=== PATIENT | female | born 1980 | race Caucasian/White ===

== ENCOUNTER 2017-12-14 15:35 | Emergency (ER) | payer SELFPAY ==
[2017-12-14] MEDS ORDERED: ONDANSETRON 4 MG/2 ML VIAL IVP STA (16:18)
[2017-12-14] MEDS ORDERED: MORPHINE 2 MG/ML CARPUJECT IVP STA (16:18)
[2017-12-14] MEDS ORDERED: SODIUM CHLORIDE 0.9% 1,000 ML IV ONE (16:18)
[2017-12-14 16:24] LABS: ALBUMIN 3.8 g/dL (3.2-5.5); ALBUMIN/GLOBULIN RATIO 1.1 (1.0-2.2); BILIRUBIN,TOTAL 0.3 mg/dL (0.2-1.0); CREATININE 0.8 mg/dL (0.4-1.0); TOTAL PROTEIN 7.3 g/dL (6.7-8.2)
[2017-12-14 16:29] LABS: BASOPHILS % (AUTO) 0.2 %; EOSINOPHILS # (AUTO) 0.1 10^3/uL (0.0-0.7); EOSINOPHILS % (AUTO) 0.8 %; LYMPHOCYTES # (AUTO) 1.9 10^3/uL (1.5-3.5); MEAN CORPUSCULAR HEMOGLOBIN 27.6 pg (27.0-31.0); MEAN CORPUSCULAR HGB CONC 34.5 g/dL (32.0-36.0); MEAN PLATELET VOLUME 7.4 fL (7.9-10.8); MONOCYTES # (AUTO) 0.6 10^3/uL (0.0-1.0); NEUTROPHILS # (AUTO) 5.4 10^3/uL (1.5-6.6); PLT - PLATELET COUNT 374 10^3/uL (130-450); RED BLOOD COUNT 3.99 10^6/uL (4.20-5.40); RED CELL DISTRIBUTION WIDTH 17.9 % (12.0-15.0)
[2017-12-14 16:30] LABS: BILIRUBIN,URINE NEGATIVE (NEGATIVE); GLUCOSE, URINE (UA) >=1000 mg/dL (NEGATIVE); KETONES,URINE (UA) NEGATIVE (NEGATIVE); LEUKOCYTE ESTERASE, URINE NEGATIVE (NEGATIVE); NITRITE,URINE NEGATIVE (NEGATIVE); OCCULT BLOOD,URINE LARGE (NEGATIVE); PROTEIN,URINE NEGATIVE (NEGATIVE); UROBILINOGEN,URINE 0.2 (NORMAL) E.U./dL (NORMAL)
--- NOTE | 2017-12-14 16:30 | ED Physician Documentation ---
PD HPI ABD PAIN - Stated complaint Stated Complaint: ABD PX/VOMITING - Chief complaint Chief Complaint: Abd Pain - History obtained from History obtained from: Patient - History of Present Illness Timing - onset: Today Timing - duration: Days (1) Timing - details: Gradual onset Pain level max: 8 Pain level now: 8 Quality: Aching, Sharp, Pain Location: RLQ Radiation: Other (non-radiating) Improved by: Other (nothing) Worsened by: Other (movement, palpation) Associated symptoms: Nausea. No: Fever, Vomiting, Hematemesis, Diarrhea, Constipation, Melena, Hematochezia, Dysuria - Additional information Additional information: Patient has a history of ovarian cyst and is usually on control, but stopped her control 2 months ago as they are trying to have another child. She states her LMP was 2 weeks ago. Has had to have a cyst drained on the right ovary in the past. She is unsure if she has had her appendix removed or not. Review of Systems Ten Systems: 10 systems reviewed and negative Constitutional: denies: Fever, Chills Nose: denies: Rhinorrhea / runny nose, Congestion Respiratory: denies: Cough GI: reports: Nausea. denies: Vomiting, Diarrhea : denies: Dysuria, Frequency, Hesitancy, Discharge Skin: denies: Rash Musculoskeletal: denies: Neck pain, Back pain Neurologic: denies: Headache PD PAST MEDICAL HISTORY - Past Medical History Past Medical History: Yes Other Past Medical History: ovarian cysts - Past Surgical History Past Surgical History: Yes - Allergies Allergies/Adverse Reactions: Allergies Allergy/AdvReac Type Severity Reaction Status Date / Time metoclopramide [From Reglan] Allergy Anxiety Verified 12/14/17 15:44 NSAIDS (Non-Steroidal Allergy Anaphylaxis Verified 12/14/17 15:44 Anti-Inflamma - Social History Does the pt smoke?: No Smoking Status: Never smoker Does the pt drink ETOH?: No Does the pt have substance abuse?: No - Immunizations Immunizations are current?: Yes PD ED PE NORMAL - Vitals Vital signs reviewed: Yes - General General: Alert and oriented X 3, No acute distress - HEENT HEENT: Moist mucous membranes - Neck Neck: Supple, no meningeal sign - Cardiac Cardiac: RRR - Respiratory Respiratory: No respiratory distress, Clear bilaterally - Abdomen Abdomen: Soft, Non distended, Other (Tender palpation right lower quadrant near McBurney's point. Positive guarding, no rebound.) - Back Back: No CVA TTP, No spinal TTP - Derm Derm: Warm and dry - Extremities Extremities: No edema - Neuro Neuro: Alert and oriented X 3 Results - Vitals Vitals: Vital Signs - 24 hr 12/14/17 15:37 Temperature 36.5 C Heart Rate 90 Respiratory 18 Rate Blood Pressure 146/104 H O2 Saturation 97 Oxygen O2 Source Room air - Labs Labs: Laboratory Tests 12/14/17 16:04 Sodium 137 Potassium 3.8 Chloride 105 Carbon Dioxide 23 Anion Gap 9.0 BUN 9 Creatinine 0.8 Estimated GFR (MDRD) 82 L Glucose 241 H Calcium 9.0 Total Bilirubin 0.3 AST 24 ALT 26 Alkaline Phosphatase 89 Total Protein 7.3 Albumin 3.8 Globulin 3.5 Albumin/Globulin Ratio 1.1 Lipase 32 - Rads (name of study) CT abd/pelvis Radiology: Prelim report reviewed, EMP read contemporaneously, See rad report (Negative CT abdomen and pelvis without findings to expand right-sided pain. Hepatic steatosis. ) PD MEDICAL DECISION MAKING - ED course Complexity details: reviewed results, re-evaluated patient, considered differential, d/w patient ED course: Patient is a 37-year-old female with right lower abdominal pain of unclear etiology. No acute findings on CT scan other than a right sided ovarian cyst. No evidence of torsion. Pain well controlled in the emergency department and she could declines any pain medication for home. She is well-appearing, nontoxic. Denies any vaginal bleeding, discharge, itching. Declines a pelvic exam at this time. Patient counseled regarding signs and symptoms for which I believe and urgent re-evaluation would be necessary. Patient with good understanding of and agreement to plan and is comfortable going home at this time This document was made in part using voice recognition software. While efforts are made to proofread this document, sound alike and grammatical errors may occur. - Sepsis Event Vital Signs: Vital Signs - 24 hr 12/14/17 15:37 Temperature 36.5 C Heart Rate 90 Respiratory 18 Rate Blood Pressure 146/104 H O2 Saturation 97 Oxygen O2 Source Room air Departure - Departure Disposition: 01 Home, Self Care Clinical Impression: Ovarian cyst Qualifiers: Laterality: right Qualified Code(s): N83.201 - Unspecified ovarian cyst, right side Abdominal pain Qualifiers: Abdominal location: unspecified location Qualified Code(s): R10.9 - Unspecified abdominal pain Condition: Good Instructions: ED Abdominal Pain Unkn Cause Follow-Up: your,doctor in 3 days. [Other] Comments: you do have a small 1.2x1.9cm cyst on the right side, which may be causing your pain. Return if you worsen. Your appendix has been removed.
[2017-12-14 16:45] LABS: CLARITY,URINE CLEAR (CLEAR)
[2017-12-14] MEDS ORDERED: IOPAMIDOL-300 100 ML VIAL ONE (16:47)
[2017-12-14 16:51] LABS: BACTERIA,URINE None Seen /HPF (None Seen); RBC,URINE TNTC /HPF (0-5); SQUAMOUS EPITHELIAL CELL,UR FEW Squamous (<= Few)
[2017-12-14] MEDS ORDERED: diphenhydrAMINE INJ 50 MG/ML VIAL IVP STA (17:02)
[2017-12-14] MEDS ORDERED: IOPAMIDOL-300 100 ML VIAL IVP ONE (17:13)
--- NOTE | 2017-12-14 17:20 | CT Report ---
Reason: RLQ abd pain Procedure Date: 12/14/2017 Accession Number: [id number] / [id number] Procedure: CT - Abdomen/Pelvis W/ CPT Code: FULL RESULT: EXAM: CT ABDOMEN AND PELVIS EXAM DATE: 12/14/2017 05:11 PM. CLINICAL HISTORY: RLQ abd pain. COMPARISONS: None. TECHNIQUE: Routine helical CT imaging was performed through the abdomen and pelvis. IV contrast: ISOVUE 300 100mL. Enteric contrast: No. Reconstructions: Coronal and sagittal. In accordance with CT protocol optimization, one or more of the following dose reduction techniques were utilized for this exam: automated exposure control, adjustment of mA and/or KV based on patient size, or use of iterative reconstructive technique. FINDINGS: Lung Bases: Unremarkable. Liver: Fatty infiltration with focal fatty sparing at the gallbladder fossa. Gallbladder/Bile Ducts: Unremarkable. Spleen: Normal. Pancreas: Normal. Adrenal Glands: Normal. Kidneys: Normal. No masses or hydronephrosis. Peritoneal Cavity/Bowel: Small amount of ingested material in the stomach. 2 cm diverticulum arising from the medial aspect of the second portion of the duodenum. Unopacified jejunal and ileal loops are nondilated. The appendix appears to be surgically absent. There is a minimal amount of formed stool in the sigmoid colon. There is no pericolonic fat stranding. There is no lymphadenopathy, ascites, or pneumoperitoneum. Pelvic Organs: Small volume bladder. Anteverted uterus unremarkable. Ovaries normal in size with a 1.9 x 1.2 cm right ovarian cyst/follicle. No adnexal fat stranding. Vasculature: No aneurysms or other significant abnormality. Bones: No significant abnormality. Other: Abdominal wall is unremarkable. IMPRESSION: 1. Negative CT abdomen and pelvis without findings to expand right-sided pain. 2. Hepatic steatosis. [facility]
[2017-12-14] MEDS ORDERED: HYDROmorphone 1 MG/ML CARPUJECT IVP STA (17:22)
[2017-12-14 17:42] VITALS: BP 165/100
== END 2017-12-14 18:30 | disposition home or self-care (01) ==
LOC: ED 15:35
DX: N83.201 Unspecified ovarian cyst, right side (principal); R10.9 Unspecified abdominal pain
CPT/HCPCS: 36415; 74177; 80053; 81001; 83690; 85025; 96361; 96374; 96375; 99283; 99284; J1170; J1200; Q9967; 81003; 87086